=== PATIENT | female | born 1990 | race African-American/Black ===

== ENCOUNTER 2016-07-01 23:19 | Emergency (ER) | payer MEDICAID, OTHER ==
[~2016-07-01] VITALS: Ht 162.6 cm; Wt 73.0 kg
[2016-07-02 05:02] VITALS: BP 108/69
== END 2016-07-02 05:37 | disposition home or self-care (01) ==
LOC: ER 23:20
DX: S61.451A Open bite of right hand, initial encounter (principal); W54.0XXA Bitten by dog, initial encounter; Y93.89 Activity, other specified; Y99.8 Other external cause status; Y92.89 Other specified places as the place of occurrence of the external cause; Z90.49 Acquired absence of other specified parts of digestive tract
CPT/HCPCS: 73130